=== PATIENT | female | born 1950 | race Caucasian/White ===

== ENCOUNTER 2022-07-11 20:57 | Emergency (ER) | payer MEDICARE ==
[2022-07-11 21:11] VITALS: BP 143/77
[2022-07-11 21:23] LABS: BASOPHILS % (AUTO) 0.5 %; EOSINOPHILS # (AUTO) 0.3 10^3/uL (0.0-0.7); EOSINOPHILS % (AUTO) 3.8 %; HCT - HEMATOCRIT 39.5 % (37.0-47.0); HGB - HEMOGLOBIN 12.1 g/dL (12.0-16.0); LYMPHOCYTES # (AUTO) 1.3 10^3/uL (1.5-3.5); LYMPHOCYTES % (AUTO) 15.7 %; MEAN CORPUSCULAR HEMOGLOBIN 28.1 pg (27.0-31.0); MEAN CORPUSCULAR HGB CONC 30.6 g/dL (32.0-36.0); MEAN CORPUSCULAR VOLUME 91.9 fL (81.0-99.0); MEAN PLATELET VOLUME 9.9 fL (7.9-10.8); MONOCYTES # (AUTO) 0.6 10^3/uL (0.0-1.0); MONOCYTES % (AUTO) 7.7 %; NEUTROPHILS # (AUTO) 5.8 10^3/uL (1.5-6.6); NEUTROPHILS % (AUTO) 71.6 %; PLT - PLATELET COUNT 253 10^3/uL (130-450); RED CELL DISTRIBUTION WIDTH 14.3 % (12.0-15.0); WHITE BLOOD COUNT 8.1 x10^3/uL (4.8-10.8)
--- NOTE | 2022-07-11 21:31 | ED Physician Documentation ---
History of Present Illness - Stated complaint Stated Complaint: LT SWOLLEN LEG/BRUISING - Chief complaint Chief Complaint: Ext Problem - Additonal information Additional information: History is obtained by patient who is reliable historian as well as her granddaughter who assists in history 71-year-old female presents emergency department for evaluation Of left lower extremity swelling as well as ecchymosis. Patient states that about 1 week ago she began having some pain in her left posterior calf. She felt that the leg got swollen though over time it is started to improve. But then 2 days ago she noticed some superficial bruising on the lower medial side of the leg. Patient is anticoagulated on Pradaxa due to a history of A. fib. She also has a history of MS as well as peripheral neuropathy. She denies any trauma. She has been taking Aleve due to pain in the leg. She is denying chest pain and shortness of air Review of Systems Constitutional: reports: Reviewed and negative Cardiac: reports: Reviewed and negative Respiratory: reports: Reviewed and negative GI: reports: Reviewed and negative Skin: reports: Other (Superficial bruising left lower medial leg) Musculoskeletal: reports: Extremity pain, Extremity swelling PD PAST MEDICAL HISTORY - Past Medical History Past Medical History: Yes Cardiovascular: Hypertension, Atrial fibrillation Endocrine/Autoimmune: HyPOthyroidism [employer]EL[employer]: Breast cancer Musculoskeletal: Other Other Past Medical History: MS - Past Surgical History Past Surgical History: Yes /[employer]ELOPER: Hysterectomy, Other HEENT: Tonsil/Adenoidectomy - Present Medications Home Medications: Ambulatory Orders Medication Instructions Recorded Confirmed Atenolol [Tenormin] 50 mg PO DAILY 07/11/22 07/11/22 Baclofen [Lioresal] 10 mg PO TID 07/11/22 07/11/22 Dabigatran Etexilate Mesylate 110 mg PO BID 07/11/22 07/11/22 [Pradaxa] Escitalopram Oxalate 20 mg PO DAILY 07/11/22 07/11/22 Gabapentin [Neurontin] 400 mg PO TID 07/11/22 07/11/22 Levothyroxine [Synthroid] 100 mcg PO QDAC 07/11/22 07/11/22 Lisinopril [Zestril] 2.5 mg PO DAILY 07/11/22 07/11/22 Nortriptyline [Pamelor] 30 mg PO DAILY 07/11/22 07/11/22 Rosuvastatin Calcium [Crestor] 5 mg PO DAILY 07/11/22 07/11/22 Triamterene/Hydrochlorothiazid 1 each PO AC 07/11/22 07/11/22 [Maxzide 75 mg-50 mg Tablet] Trospium Chloride 20 mg PO DAILY 07/11/22 07/11/22 oxyCODONE ER [OxyCONTIN] 10 mg PO DAILY 07/11/22 07/11/22 - Allergies Allergies/Adverse Reactions: Allergies Allergy/AdvReac Type Severity Reaction Status Date / Time morphine Allergy Nausea Verified 07/11/22 21:07 - Social History Does the pt smoke?: No Smoking Status: Never smoker Does the pt have substance abuse?: No - Immunizations Immunizations are current?: Yes PD ED PE NORMAL - General General: Alert and oriented X 3, No acute distress, Well developed/nourished (Obese) - Cardiac Cardiac: Strong equal pulses. No: RRR (Irregularly irregular) - Extremities Extremities: Other (Right calf measures at 44 cm in circumference. Left calf m easures at 47 cm in circumference. There is ecchymosis on the left lower medial leg. 2+ DP pulses bilaterally) Results - Vitals Vitals: Vital Signs - 24 hr 07/11/22 21:02 Temperature 36.7 C Heart Rate 77 Respiratory 18 Rate Blood Pressure 143/77 H O2 Saturation 97 Oxygen O2 Source Room air - Labs Labs: Laboratory Tests 07/11/22 21:17 WBC 8.1 RBC 4.30 Hgb 12.1 Hct 39.5 MCV 91.9 MCH 28.1 MCHC 30.6 L RDW 14.3 Plt Count 253 MPV 9.9 Neut # (Auto) 5.8 Lymph # (Auto) 1.3 L [place] # (Auto) 0.6 Eos # (Auto) 0.3 Baso # (Auto) 0.0 Absolute Nucleated RBC 0.00 Nucleated RBC % 0.0 PD Medical Decision Making - ED course Complexity details: considered differential, d/w patient, d/w family ED course: 71-year-old female who carries a history of MS, peripheral neuropathy, atrial fibrillation anticoagulated on Pradaxa presents the emergency department for evaluation of swelling ecchymosis and pain to the left leg. She began having calf pain about 1 week ago and reports that she had more significant swelling that has subsequently started to resolve but she began having bruising on the medial leg yesterday. There is a calf size discrepancy as well as some mild posterior calf tenderness with palpation. I did obtain a screening CBC and electrolytes without acute worrisome findings noted. However unfortunately at this hour the night we do not have ultrasound available. She is already anticoagulated on Pradaxa. Given the lack of ultrasound availability at this time she is discharged home with instructions to return tomorrow for formal imaging. Departure - Departure Disposition: Home, Self Care Clinical Impression: Swelling of left lower extremity Superficial bruising of lower leg Qualifiers: Encounter type: initial encounter Laterality: left Qualified Code(s): S80.12XA - Contusion of left lower leg, initial encounter Comments: Emperatriz unfortunately we do not have ultrasound available at this time to rule out a blood clot in your lower leg. They will be available at 9 AM and I do recommend that you return to the emergency department at that time for the imaging. Overnight you can continue to take your usual medications. Please do not take NSAID medication like ibuprofen, Aleve, naproxen, Advil while on Pradaxa as this can increase your bleeding risk. Return sooner to the emergency department if you develop any sudden severe chest pain, shortness of air or have any fainting episodes
[2022-07-11 21:34] LABS: CALCIUM 9.5 mg/dL (8.5-10.3); CREATININE 0.9 mg/dL (0.4-1.0); POTASSIUM 3.4 mmol/L (3.5-5.0)
== END 2022-07-11 21:35 | disposition home or self-care (01) ==
LOC: ED 20:57
DX: S80.12XA Contusion of left lower leg, initial encounter (principal); R22.42 Localized swelling, mass and lump, left lower limb; G35 Multiple sclerosis; X58.XXXA Exposure to other specified factors, initial encounter; I48.91 Unspecified atrial fibrillation; Z79.01 Long term (current) use of anticoagulants; G62.9 Polyneuropathy, unspecified
CPT/HCPCS: 36415; 80048; 85025; 99283; 99284

== ENCOUNTER 2022-07-12 09:15 | Emergency (ER) | payer MEDICARE ==
[2022-07-12 09:23] VITALS: BP 141/81
--- NOTE | 2022-07-12 10:08 | Ultrasound Report ---
PROCEDURE: Duplex Ext Veins Left INDICATIONS: pain. swelling. bruising. TECHNIQUE: Real-time imaging, as well as color and pulse Doppler interrogation, were performed of the lower extr emity deep veins from the inguinal ligament to the popliteal fossa. COMPARISON: None. FINDINGS: The deep veins are normally compressible, and free of intraluminal thrombus. Color and pu lse Doppler demonstrate normal phasic intraluminal flow. There is normal augmentation response to di stal compression maneuver. There is a Zamarripa's cyst measures 7.5 x 2.3 x 4.2 cm seen in posterior left knee. No communication wit h adjacent left knee joint is seen. IMPRESSION: 1. No evidence of DVT in visualized left lower extremity veins. 2. Suggestion of a 7.5 x 2.3 x 4.2 cm Zamarripa's cyst as above. Reviewed by: Zbigniew May MD on 07/12/2022 10:07 AM [facility] Approved by: Zbigniew May MD on 07/12/2022 10:07 AM [facility] Station ID: [id number]
--- NOTE | 2022-07-12 11:14 | ED Physician Documentation ---
PD HPI LOWER EXT INJURY - Stated complaint Stated Complaint: LT LEG SWOLLEN - Chief complaint Chief Complaint: Ext Problem - History obtained from History obtained from: Patient - History of Present Illness PD HPI LOW EXT INJURY LOCATION: Left, Knee, Lower leg Type of injury: No: Fall, Twist Where injury occurred: Home Timing - onset: How many days ago (few) Timing - duration: Days (few) Timing - details: Abrupt onset (she noted a pain in medial upper calf several days ago and has had development of bruising and swelling of mid to lower calf. Seen in ER last evening and told to return today for U/S to evaluate for DVT.) Worsened by: Moving, Palpating Associated symptoms: Swelling, Discolored (some purple bruising of medial to posterior lower portion of calf.). No: Weakness, Numbness Recently seen: Emergency Dept (last evening for same, and told to return to ER today for U/S.) Review of Systems Cardiac: denies: Chest pain / pressure, Palpitations Respiratory: denies: Dyspnea, Cough Skin: denies: Abrasion (s), Laceration (s) Musculoskeletal: denies: Back pain Neurologic: denies: Focal weakness, Numbness PD PAST MEDICAL HISTORY - Past Medical History Past Medical History: Yes Cardiovascular: Hypertension, Atrial fibrillation Endocrine/Autoimmune: HyPOthyroidism [employer] TELE[employer]: Breast cancer Musculoskeletal: Other - Past Surgical History Past Surgical History: Yes 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, Other HEENT: Tonsil/Adenoidectomy - Present Medications Home Medications: Ambulatory Orders Medication Instructions Recorded Confirmed Atenolol [Tenormin] 50 mg PO DAILY 07/11/22 07/11/22 Baclofen [Lioresal] 10 mg PO TID 07/11/22 07/11/22 Dabigatran Etexilate Mesylate 110 mg PO BID 07/11/22 07/11/22 [Pradaxa] Escitalopram Oxalate 20 mg PO DAILY 07/11/22 07/11/22 Gabapentin [Neurontin] 400 mg PO TID 07/11/22 07/11/22 Levothyroxine [Synthroid] 100 mcg PO QDAC 07/11/22 07/11/22 Lisinopril [Zestril] 2.5 mg PO DAILY 07/11/22 07/11/22 Nortriptyline [Pamelor] 30 mg PO DAILY 07/11/22 07/11/22 Rosuvastatin Calcium [Crestor] 5 mg PO DAILY 07/11/22 07/11/22 Triamterene/Hydrochlorothiazid 1 each PO AC 07/11/22 07/11/22 [Maxzide 75 mg-50 mg Tablet] Trospium Chloride 20 mg PO DAILY 07/11/22 07/11/22 oxyCODONE ER [OxyCONTIN] 10 mg PO DAILY 07/11/22 07/11/22 - Allergies Allergies/Adverse Reactions: Allergies Allergy/AdvReac Type Severity Reaction Status Date / Time morphine Allergy Nausea Verified 07/12/22 09:22 - Social History Does the pt smoke?: No Smoking Status: Never smoker Does the pt drink ETOH?: No Does the pt have substance abuse?: No Substance Use and Type: CBD oil / Products - Immunizations Immunizations are current?: Yes PD ED PE NORMAL - Vitals Vital signs reviewed: Yes - General General: Alert and oriented X 3, No acute distress, Well developed/nourished - Cardiac Cardiac: RRR, No murmur - Respiratory Respiratory: No respiratory distress, Clear bilaterally - Derm Derm: Normal color, Warm and dry - Extremities Extremities: Other (there is some general swelling left lower leg brom knee down, with some fullness in popliteal area but not tender. Some tender medial part of calf part way down. There is purple bruising of calf and almost to ankle in lower leg. ) - Neuro Neuro: Alert and oriented X 3, No motor deficit, No sensory deficit Results - Vitals Vitals: Vital Signs - 24 hr 07/12/22 09:19 Temperature 36.2 C L Heart Rate 75 Respiratory 16 Rate Blood Pressure 141/81 H O2 Saturation 98 Oxygen O2 Source Room air - Rads (name of study) duplex left lower leg Radiology: Prelim report reviewed (no DVT. There is 7 cm bakers cyst in back of knee. No free fluid. ), See rad report PD Medical Decision Making - ED course Complexity details: reviewed results, considered differential (concern for DVT, but oringinal sounds like calf muscle bundle tear/bleed, with hematoma that is now gravitating lower in lower leg and causing swelling/tender. ), d/w patient Departure - Departure Disposition: 01 Home, Self Care Clinical Impression: Strain of calf muscle Clinical Impression: (Ruled Out): Deep vein thrombosis Condition: Stable Record reviewed to determine appropriate education?: Yes Follow-Up: Joesph Stevens MD [Primary Care Provider] - Comments: The ultrasound of your leg is negative for DVT (blood clot in the veins).Your symptoms and findings are likely caused by small tear in the muscle of the calf causing a localized blood in the tissue called a hematoma which then tracked bart nward from gravity causing the swelling and bruising. This should continue to resolve over the next week or so. Activity is normal. Regular activity is okay. You could do some warm towels periodically to the area to help absorb the blood in the tissue a little faster but otherwise just time. There was a finding on the ultrasound of a cyst in the back part of the knee called a Zamarripa's cyst. This is essentially a knee version of a ganglion cyst. This does not seem to be tender so I think is just an incidental finding and does not need any further attention or treatment unless it starts to be tender or pain you in that area. If it does then follow-up with the orthopedist. Discharge Date/Time: 07/12/22 11:25
== END 2022-07-12 11:25 | disposition home or self-care (01) ==
LOC: ED 09:15
DX: S86.812A Strain of other muscle(s) and tendon(s) at lower leg level, left leg, initial encounter (principal); M71.22 Synovial cyst of popliteal space [Baker], left knee; S80.12XA Contusion of left lower leg, initial encounter; X58.XXXA Exposure to other specified factors, initial encounter
CPT/HCPCS: 99282; 99284